=== PATIENT | female | born 1980 | race Caucasian/White ===

== ENCOUNTER 2023-03-05 00:21 | Emergency (ER) | payer OTHER ==
[~2023-03-05] VITALS: Ht 162.6 cm; Wt 71.7 kg
[~2023-03-05 00:21] MED LIST: MEDROLPACK PO; ZYRTEC10 MG PO
[2023-03-05] MEDS ORDERED: ZESTRIL10 M1 (01:04)
[2023-03-05] MEDS ORDERED: OSEL75CA PO (01:05)
[2023-03-05] MEDS ORDERED: PEPCID AC20 MG PO (11:20)
[2023-03-05] MEDS ORDERED: CIPRO500 MG PO (11:20)
== END 2023-03-05 11:37 | disposition home or self-care (01) ==
LOC: ER 00:21
PROVIDERS: General Practice
DX: J11.1 Influenza due to unidentified influenza virus with other respiratory manifestations (principal); N39.0 Urinary tract infection, site not specified; K52.9 Noninfective gastroenteritis and colitis, unspecified; I10 Essential (primary) hypertension